=== PATIENT | male | born 1985 | race Caucasian/White ===

== ENCOUNTER 2017-03-14 14:41 | Emergency (ER) | payer OTHER ==
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
--- NOTE | 2017-03-14 16:50 | ED ORDER SUMMARY ---
..... Patient: AGUSTIN URIBE JR OrderSheet [facility] VisitID: [id number] [place] [address] 31y, M Registration Date/Time: 03/14/2017 ORDER SHEET Weight: 90.7 kg (stated) Allergies: No Known Drug Allergy GENERAL ORDERS: US Scrotum/Testicular Urgent (15:03/14/2017 Sherley Bradford) (Ack 15:11 Keila) (17:18 Breanne R.N.) Finger Left (thumb) Urgent (15:03/14/2017 Sherley Bradford) (Ack 15:11 Keila) (17:18 Breanne Titus.N.) Ice (15:03/14/2017 Sherley Bradford) (15:25 Breanne R.N.) MEDICATION ORDERS: Percocet PO 5/325 mg (HIGH ALERT MEDICATION, NOW) (15:03/14/2017 Sherley Bradford) (15:16 Breanne R.N.) Dzbyxkw-Bmdujr-Yyfop Pertussis IM 0.5 mL (NOW, per protocol) (15:03/14/2017 Sherley Bradford) (15:15 Breanne R.N.) IV FLUIDS: ORDER SHEET NOTES: [Electronically signed by Rolan Dasilva R.N. (17:18 03/14/2017)] [Electronically signed by Emory Mtz Dr. (05:51 03/16/2017)] [Electronically locked/signed by Rolan Dasilva R.N. (17:18 03/14/2017)]
--- NOTE | 2017-03-14 16:50 | ED ORDER SUMMARY ---
..... Patient: AGUSTIN URIBE JR OrderSheet [facility] VisitID: [id number] [place] [address] 31y, M Registration Date/Time: 03/14/2017 ORDER SHEET Weight: 90.7 kg (stated) Allergies: No Known Drug Allergy GENERAL ORDERS: US Scrotum/Testicular Urgent (15:03/14/2017 Sherley Bradford) (Ack 15:11 Keila) (17:18 Breanne R.N.) Finger Left (thumb) Urgent (15:03/14/2017 Sherley Bradford) (Ack 15:11 Keila) (17:18 Breanne Titus.N.) Ice (15:03/14/2017 Sherley Bradford) (15:25 Breanne R.N.) MEDICATION ORDERS: Percocet PO 5/325 mg (HIGH ALERT MEDICATION, NOW) (15:03/14/2017 Sherley Bradford) (15:16 Breanne R.N.) Isxqcmi-Iobrgn-Npxnn Pertussis IM 0.5 mL (NOW, per protocol) (15:03/14/2017 Sherley Bradford) (15:15 Breanne R.N.) IV FLUIDS: ORDER SHEET NOTES: [Electronically signed by Rolan Dasilva R.N. (17:18 03/14/2017)] [Electronically signed by Emory Mtz Dr. (05:51 03/16/2017)] [Electronically locked/signed by Rolan Dasilva R.N. (17:18 03/14/2017)]
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
--- NOTE | 2017-03-14 20:16 | DIAGNOSTIC IMAGING REPORT ---
PROCEDURE: US SCROTUM/TESTICLE INDICATION: TRAUMA TECHNIQUE: Bender scale and color Doppler sonographic images through the scrotum were obtained. COMPARISON: None. FINDINGS: The right testicle measures 4.7 x 2.8 x 2.4 cm and the left measures 4.8 x 3.2 x 2.3 cm Both testicles demonstrate homogeneous echotexture without solid mass, cyst, or numerous microcalcifications. Color Doppler imaging demonstrates normal and symmetric arterial and venous testicular flow. No suspicious hyperemia. The epididymi are normal in size, echotexture, and vascularity. No hydrocele or varicocele. No significant scrotal skin thickening. IMPRESSION: 1. Normal testicular ultrasound.
--- NOTE | 2017-03-16 05:51 | ED MAR SUMMARY ---
..... Medication Administration Record [facility] [address] [place] [address] Patient: AGUSTIN URIBE Visit ID: [id number] 31y, M Weight: 90.7 kg Height/Length: 70 in BMI: 28.7 ALLERGIES: No Known Drug Allergy Given 15:10 03/14/2017 Rolan Dasilva, RZoniaN. Medication Administered: OBVQHPG-EOXCHU-KWIKS PERTUSSIS [IM], Dose: 0.5 mL IM. Medication Ordered: Ecpeyfr-Ypipsg-Mspav Pertussis IM 0.5 mL (NOW, per protocol). Given 15:11 03/14/2017 Rolan Dasilva, R.N. Medication Administered: PERCOCET [PO] (OXYCODONE-ACETAMINOPHEN), Dose: 1 tab 5/325 mg Tablets PO. Medication Ordered: Percocet PO 5/325 mg (HIGH ALERT MEDICATION, NOW).
--- NOTE | 2017-03-16 05:51 | ED MED RECONCILIATION SUMMARY ---
Patient: AGUSTIN URIBE JR Medication Reconciliation Report [facility] VisitID: [id number] [address] [place] [address] 31y, M Registration Date/Time: 03/14/2017 Weight: 90.7 kg Height/Length: 70 in. BMI: 28.7 ALLERGIES: No Known Drug Allergy The patient's Home Medications are listed below: NONE. The source(s) of the original Home Medication information: patient The following Medications were given to the patient in the Emergency Department: XCJSSPB-GXIARK-BJRWO PERTUSSIS [IM] IM 0.5 mL, administered: 03/14/2017 3:10:00 PM Percocet [PO] PO 1 tab, administered: 03/14/2017 3:11:00 PM The following Medications were prescribed to the patient: Acetaminophen (available over the counter): take according to label instructions. -- Emory Mtz Dr. Motrin (available over the counter): take according to label instructions. -- Emory Mtz Dr.
--- NOTE | 2017-03-16 05:51 | ED DISCHARGE INSTRUCTIONS ---
Patient: AGUSTIN URIBE JR General Instructions [facility] VisitID: [id number] [place] [address] 31y, M Registration Date/Time: 03/14/2017 03/14/2017 14:54 BP: 132/70. HR: 86. RR: 16. O2 saturation: 100%. Temp: 99.8 F. Pain level now: 8/10. Blood pressure normal. Oxygen saturation normal. Multiple superficial abrasions. (arms, legs, scrotum, and torso). Multiple contusions. (back, hand, arms, and legs). Left subconjunctival hemorrhage (acute). INSTRUCTIONS Off work today, tomorrow. Warnings: GENERAL WARNINGS: Return or contact your physician immediately if your condition worsens or changes unexpectedly, if not improving as expected, or if other problems arise. SPECIFICALLY, return if you develop weakness, numbness, tingling, pain or incontinence. Your Current Medications: CONTINUE TAKING THE FOLLOWING MEDICATIONS: None*. OTC Medications: Acetaminophen (available over the counter): take according to label instructions. Motrin (available over the counter): take according to label instructions. Follow-up: Return to the emergency department as needed. Follow up with your doctor in one week. Reason for referral: recheck today's concerns. Summary of care provided to patient via paper. Screening today revealed the patient's blood pressure to be in the normal range. The patient should follow up with a primary care provider for blood pressure management. Understanding of the discharge instructions verbalized by patient. ADDITIONAL INFORMATION Abrasions Abrasions are skin scrapes. Their treatment depends on how large and deep the abrasion is. Home Care: If you were given a bandage, change it once a day. If your bandage sticks to the wound, soak it in warm water until it loosens. Wash the area with soap and water to remove all the cream/ointment. You may do this in a sink, under a tub faucet or shower. Rinse off the soap and pat dry with a clean towel. Reapply cream/ointment according to your doctor's instructions. This will prevent infection and help prevent the bandage from sticking. Cover the wound with a fresh non-stick bandage (Telfa). Repeat steps 1 to 4 daily, or as directed by your doctor. If the bandage becomes wet or dirty, change it as soon as possible. You may use acetaminophen (Tylenol) or ibuprofen (Motrin, Advil) to control pain, unless another pain medicine was prescribed. [ NOTE : If you have chronic liver or kidney disease or ever had a stomach ulcer or GI bleeding, talk with your doctor before using these medicines.] Do not use ibuprofen in children under six months of age. Follow Up with your physician or this facility as directed by our staff. Most skin wounds heal within ten days. However, an infection may occur despite proper treatment. Therefore, look for the early signs of infection listed below. Get Prompt Medical Attention if any of the following occur: Increasing pain in the wound Increasing redness or swelling Pus coming from the wound Fever of 100.4F (38C) or higher, or as directed by your healthcare provider Contusion,Soft Tissue You have a CONTUSION, which is a bruise with swelling and some bleeding under the skin. There are no broken bones. This injury takes a few days to a few weeks to heal. Home Care: 1) Keep the injured part elevated to reduce pain and swelling. This is especially important during the first 48 hours. 2) Make an ice pack (ice cubes in a plastic bag, wrapped in a towel) and apply for 20 minutes every 1-2 hours the first day. Continue this 3-4 times a day until the pain and swelling goes away. 3) You may use acetaminophen (Tylenol) or ibuprofen (Motrin, Advil) to control pain, unless another pain medicine was prescribed. [ NOTE : If you have chronic liver or kidney disease or ever had a stomach ulcer or GI bleeding, talk with your doctor before using these medicines.] Follow Up with your doctor or this facility if you are not improving within the next THREE days. [NOTE: If X-rays were taken, they will be reviewed by a radiologist. You will be notified of any new findings that may affect your care.] Get Prompt Medical Attention if any of the following occur: -- Pain or swelling increases -- Injured arm or leg becomes cold, blue, numb or tingly -- Redness, warmth or drainage from the skin Subconjunctival Hemorrhage A subconjunctival hemorrhage is a result of a broken blood vessel in the white portion of the eye. It is usually painless and may be caused by coughing, sneezing or vomiting. An injury to the eye can cause this. It can also be a sign of hypertension (high blood pressure) or a bleeding disorder. Although it can look frightening, the presence of the blood is not serious. The blood will be reabsorbed without treatment within 2-3 weeks. Home Care: You may continue your usual activities. Get Prompt Medical Attention if any of the following occur: Pain in the eye Change in vision The blood does not disappear within three weeks Increasing redness or swelling of the eye Severe headache or dizziness Other signs of bruising or bleeding from other parts of your body You have been given the following additional information: Abrasion Contusion, Soft Tissue Subconjunctival Hemorrhage Off work today, tomorrow. (Electronically signed by Emory Mtz Dr. 03/16/2017 5:51)
--- NOTE | 2017-03-16 05:51 | ED MAR SUMMARY ---
..... Medication Administration Record [facility] [address] [place] [address] Patient: AGUSTIN URIBE Visit ID: [id number] 31y, M Weight: 90.7 kg Height/Length: 70 in BMI: 28.7 ALLERGIES: No Known Drug Allergy Given 15:10 03/14/2017 Rolan Dasilva, RZoniaN. Medication Administered: PXJUVZQ-JRAJXG-XDHTM PERTUSSIS [IM], Dose: 0.5 mL IM. Medication Ordered: Qoslqpe-Lzruds-Eqfll Pertussis IM 0.5 mL (NOW, per protocol). Given 15:11 03/14/2017 Rolan Dasilva, R.N. Medication Administered: PERCOCET [PO] (OXYCODONE-ACETAMINOPHEN), Dose: 1 tab 5/325 mg Tablets PO. Medication Ordered: Percocet PO 5/325 mg (HIGH ALERT MEDICATION, NOW).
--- NOTE | 2017-03-16 05:51 | ED MED RECONCILIATION SUMMARY ---
Patient: AGUSTIN URIBE JR Medication Reconciliation Report [facility] VisitID: [id number] [address] [place] [address] 31y, M Registration Date/Time: 03/14/2017 Weight: 90.7 kg Height/Length: 70 in. BMI: 28.7 ALLERGIES: No Known Drug Allergy The patient's Home Medications are listed below: NONE. The source(s) of the original Home Medication information: patient The following Medications were given to the patient in the Emergency Department: [id number] PERTUSSIS [IM] IM 0.5 mL, administered: 03/14/2017 3:10:00 PM Percocet [PO] PO 1 tab, administered: 03/14/2017 3:11:00 PM The following Medications were prescribed to the patient: Acetaminophen (available over the counter): take according to label instructions. -- [facility] Motrin (available over the counter): take according to label instructions. -- [facility]
== END 2017-03-14 17:00 | disposition home or self-care (01) ==
LOC: ED SRH 14:41
DX: S30.0XXA Contusion of lower back and pelvis, initial encounter (principal); S20.229A Contusion of unspecified back wall of thorax, initial encounter; S30.813A Abrasion of scrotum and testes, initial encounter; H11.32 Conjunctival hemorrhage, left eye; S60.229A Contusion of unspecified hand, initial encounter; S40.029A Contusion of unspecified upper arm, initial encounter; S80.10XA Contusion of unspecified lower leg, initial encounter; Z23 Encounter for immunization; Y04.0XXA Assault by unarmed brawl or fight, initial encounter; Y93.89 Activity, other specified